=== PATIENT | female | born 1955 ===

== ENCOUNTER → 2017-03-18 | Emergency (ER) | payer OTHER ==
[~2017-03-18] VITALS: Ht 170.2 cm; Wt 58.1 kg
[~2017-03-18] MED LIST: SKELAXIN800 MG PO
== END | disposition home or self-care (01) ==
LOC: ER 05:15
DX: M79.632 Pain in left forearm (principal)

== ENCOUNTER 2017-11-15 09:16 | Outpatient (CLI) | payer OTHER | END 2017-11-15 09:23 | disposition home or self-care (01) | LOC: SONOGRAMA 09:16 | DX: E04.1 Nontoxic single thyroid nodule (principal) ==

== ENCOUNTER 2021-08-07 10:45 | Inpatient (IN) | payer OTHER ==
[~2021-08-07] VITALS: Ht 170.2 cm; Wt 58.1 kg
[2021-08-07] MEDS ORDERED: BENADRYL25 MG PO (13:11)
[2021-08-12] MEDS ORDERED: CYANOCOBAL1000 MCG/1 (07:50)
[2021-08-12] MEDS ORDERED: ULTRACET PO (08:06)
[2021-08-12] MEDS ORDERED: HYOSCYAMINE0.125 M1 SL (08:06)
[2021-08-12] MEDS ORDERED: PROTONIX40 MG PO (08:07)
== END 2021-08-12 12:51 | disposition home or self-care (01) | DRG 331 ==
LOC: O/R 08-11 06:00 → SURH 08-11 06:00
PROVIDERS: ADMIT Surgery; ATTEND Surgery
PROC: 0DTH4ZZ Resection of Cecum, Percutaneous Endoscopic Approach (ICD-10-PCS; principal; 2021-08-11 08:30)
DX: D12.0 Benign neoplasm of cecum (principal); Z20.822 Contact with and (suspected) exposure to COVID-19